=== PATIENT | female | born 1985 | race Caucasian/White ===

== ENCOUNTER 2020-01-23 04:22 | Emergency (ER) | payer SELFPAY ==
[~2020-01-23] VITALS: Ht 172.7 cm; Wt 63.5 kg
[2020-01-23 04:36] VITALS: BP 122/78
--- NOTE | 2020-01-23 04:37 | NUR ---
BIBSELF C/O L SIDE MOUTH PAIN AND SWELLING X3 DAYS, pt aox4 rr even and unlabored. no sob noted. no vnd at this time. no acute distress noted. pt connected to monitor waiting for md black.
--- NOTE | 2020-01-23 04:40 | NUR ---
dr. tate at bedside for eval.
== END 2020-01-23 04:52 | disposition home or self-care (01) ==
LOC: ER 04:22
DX: K04.7 Periapical abscess without sinus (principal)